=== PATIENT | female | born 1970 | race Caucasian/White ===

== ENCOUNTER 2018-09-05 10:46 | Emergency (ER) | payer MEDICAID ==
[~2018-09-05] VITALS: Wt 115.0 kg
[2018-09-05] MEDS ORDERED: IBUP-1542 PO (14:22)
--- NOTE | 2018-09-05 14:27 | ERD ---
ER Documentation Chief Complaint Chief Complaint left breast mass x 1 week HPI This 48-year-old female presents with some pain and swelling above her left nipple for the last week. She denies any redness, fevers, bloody or purulent nipple discharge. She also has some pain on her left medial arm. She has restricted range of motion weakness or history of injury. ROS All systems reviewed and are negative except as per history of present illness. Medications Home Meds Active Scripts Ibuprofen* (Motrin*) 600 Mg Tab, 600 MG PO Q6, #20 TAB Prov:KAYLA MONAHAN MD 09/05/18 Allergies Allergies: Coded Allergies: No Known Allergy (Unverified , 09/05/18) PMhx/Soc History of Surgery: Yes (shoulder surgery) Hx Miscellaneous Medical Probl: Yes (gastritis) Hx Alcohol Use: No Hx Substance Use: No Hx Tobacco Use: No Smoking Status: Never smoker Physical Exam Vitals Vital Signs Date Temp Pulse Resp B/P (MAP) Pulse Ox O2 O2 Flow FiO2 Time Delivery Rate 09/05/18 97.7 96 16 147/92 96 10:50 (110) Physical Exam Const: No acute distress Head: Atraumatic Eyes: Normal Conjunctiva ENT: Normal External Ears, Nose and Mouth. Neck: Full range of motion. No meningismus. Resp: Clear to auscultation bilaterally Cardio: Regular rate and rhythm, no murmurs Abd: Soft, non tender, non distended. Normal bowel sounds Skin: No petechiae or rashes Back: No midline or flank tenderness Ext: No cyanosis, or edema mildly tender left medial epicondylar area without erythema, warmth, effusion, deformities, restricted range of motion or weakness. Neur: Awake and alert Psych: Normal Mood and Affect Breast exam shows mobile circumscribed approximately 2 cm lesion above the left nipple. No warmth, erythema, nipple discharge. No appreciable lymphadenitis. Procedures/MDM Left breast ultrasound shows complex cystic lesion at 12:00 left breast without obvious malignant features or cystic features. Mammogram recommended. Patient presents with a one-week history of painful left breast lesion of uncertain etiology. Mammogram recommended. Is no signs of abscess, cellulitis, left upper extremity exam shows no evidence of ischemia, deficits, fraction. She will be treated with ibuprofen and [facility] for further evaluation and treatment and evaluation for mammogram and primary care. The patient was stable with no new complaints during the ER course. Clinically, there is no current evidence to suggest meningitis, sepsis, acute abdomen, pneumonia, stroke, acute coronary syndrome, pulmonary embolism, aortic dissecti on or any other emergent condition appearing to require further evaluation or hospitalization. Patient counseled regarding my diagnostic impression and care plan. Prior to discharge all questions answered. Pt agrees with treatment plan and understands strict return precautions. Pt is instructed to follow up with primary care provider within 24-48 hours. Precautionary instructions provided including instructions to return to the ER if not improving or for any worsening or changing symptoms or concerns. Departure Diagnosis: Primary Impression: Breast lump Condition: Stable Patient Instructions: Breast Mass, Uncertain Cause Referrals: [facility] Joana se gary hecho un examen mdico de control que le indica que no est en jose condicin que requiera tratamiento urgente en el Departamento de Emergencia. Un estudio ms profundo y el tratamiento de mancera condicin pueden esperar sin ningn riesgo hasta que usted sea atendida/o en el consultorio de mancera mdico o jose clnica. Es responsabilidad suya arreglar jose palma para el seguimiento del tristan. MANEJO DE CONDICIONES NO URGENTES EN EL FUTURO 1) Si usted tiene un mdico de atencin primaria: Usted debera llamar a mancera mdico de atencin primaria antes de venir al departamento de emergencia. Despus de las horas de consultorio, mancera doctor o mancera asociado/a est disponible por telfono. El mdico o enfermero de elise en el servicio telefnico puede asesorarle por sintia medio para atender el problema, o tristan contrario se puede programar jose palma. 2) Si usted no tiene un mdico de atencin primaria: Llame al mdico o clnica de referencia que aparece abajo harriett las horas de consultorio para hacer jose palma para que le vean. CLINICAS: [facility] [id number] [facility] [id number] [facility] [phone] [place] [phone] [place] [id number] [phone] [facility] [phone] [address] Additional Instructions: recomiendo un mammografia. va al clinica/ mancera doctor primario para mas evaluacon y autorizado. KAYLA MONAHAN MD Sep 05, 2018 14:27
== END 2018-09-05 14:45 | disposition home or self-care (01) ==
LOC: EDSEX 10:46 → FTE 10:46
DX: N63.20 Unspecified lump in the left breast, unspecified quadrant (principal)
CPT/HCPCS: 76642; Z7502